=== PATIENT | female | born 1955 | race Caucasian/White ===

== ENCOUNTER 2017-02-25 11:19 | Emergency (ER) | payer MEDICARE, OTHER ==
[2017-02-25] MEDS ORDERED: Adacel (T-DAP) 0.5 ML VIAL ONE (11:45)
== END 2017-02-25 12:09 | disposition home or self-care (01) ==
LOC: NAV ERS 11:19
DX: S91.331A Puncture wound without foreign body, right foot, initial encounter (principal); I10 Essential (primary) hypertension; E03.9 Hypothyroidism, unspecified; J45.909 Unspecified asthma, uncomplicated; F31.9 Bipolar disorder, unspecified; F17.210 Nicotine dependence, cigarettes, uncomplicated; Z79.899 Other long term (current) drug therapy; W45.0XXA Nail entering through skin, initial encounter; Z23 Encounter for immunization
CPT/HCPCS: 90471; 90715

== ENCOUNTER 2020-12-08 17:19 | Emergency (ER) | payer MEDICARE, OTHER | END 2020-12-08 19:00 | disposition home or self-care (01) | LOC: NAV ERS 17:19 | DX: L02.416 Cutaneous abscess of left lower limb (principal); E78.5 Hyperlipidemia, unspecified; E03.9 Hypothyroidism, unspecified; I10 Essential (primary) hypertension; F17.220 Nicotine dependence, chewing tobacco, uncomplicated; Z79.899 Other long term (current) drug therapy | CPT/HCPCS: 10060; 87070; 87205 ==

== ENCOUNTER 2022-05-08 14:01 | Emergency (ER) | payer MEDICAID, MEDICARE, OTHER ==
[2022-05-08 14:28] LABS: Bilirubin Negative (Negative); Blood, Urine Trace (Negative); Glucose, Urine (Dipstick) Negative (Negative); Ketone, Urine Negative (Negative); Leukocyte Trace (Negative); Nitrite Negative (Negative); Protein, Urine (Dipstick) 30 mg/dL (Neg-Trace); Specific Gravity, Urine 1.015 (1.005-1.030); Urobilinogen 0.2 mg/dL (Less than 2)
[2022-05-08 14:44] LABS: Clarity SL HAZY (Clear); RBC/HPF 0-3 HPF (0-3); Squamous Epithelial 0-3 HPF (0-3); WBC/HPF 0-3 HPF (0-3)
[2022-05-08] MEDS ORDERED: Sodium Chloride 0.9% 1,000 ML ONE (14:59)
== END 2022-05-08 15:15 | disposition home or self-care (01) ==
LOC: NAV ERS 14:01
DX: R30.0 Dysuria (principal); R19.7 Diarrhea, unspecified; Z20.822 Contact with and (suspected) exposure to COVID-19; E78.5 Hyperlipidemia, unspecified; E03.9 Hypothyroidism, unspecified; I10 Essential (primary) hypertension; F17.210 Nicotine dependence, cigarettes, uncomplicated; Z79.899 Other long term (current) drug therapy
CPT/HCPCS: 81003; 81015; 87086; 99283; J7050; U0003; U0005

== ENCOUNTER 2023-04-02 04:08 | Emergency (ER) | payer OTHER, MEDICARE ==
[2023-04-02] MEDS ORDERED: Acetaminophen 500 MG TAB ONE (04:58)
== END 2023-04-02 04:16 | disposition home or self-care (01) ==
LOC: NAV ERS 04:08
DX: M54.2 Cervicalgia (principal); I10 Essential (primary) hypertension; E03.9 Hypothyroidism, unspecified; F17.220 Nicotine dependence, chewing tobacco, uncomplicated; J45.909 Unspecified asthma, uncomplicated; E78.00 Pure hypercholesterolemia, unspecified; V48.9XXA Unspecified car occupant injured in noncollision transport accident in traffic accident, initial encounter; Z79.899 Other long term (current) drug therapy
CPT/HCPCS: 99283

== ENCOUNTER 2023-09-19 19:46 | Emergency (ER) | payer MEDICARE, MEDICAID | END 2023-09-19 21:18 | disposition home or self-care (01) | LOC: NAV ERS 19:46 | DX: S93.402A Sprain of unspecified ligament of left ankle, initial encounter (principal); S86.912A Strain of unspecified muscle(s) and tendon(s) at lower leg level, left leg, initial encounter; I10 Essential (primary) hypertension; F17.220 Nicotine dependence, chewing tobacco, uncomplicated; F17.210 Nicotine dependence, cigarettes, uncomplicated; W19.XXXA Unspecified fall, initial encounter ==

== ENCOUNTER 2025-05-13 07:38 | Emergency (ER) | payer OTHER | END 2025-05-13 08:39 | disposition home or self-care (01) | LOC: NAV ERS 07:38 | DX: M54.2 Cervicalgia (principal); G89.29 Other chronic pain; I10 Essential (primary) hypertension; E03.9 Hypothyroidism, unspecified; J45.909 Unspecified asthma, uncomplicated; F17.210 Nicotine dependence, cigarettes, uncomplicated; Z79.51 Long term (current) use of inhaled steroids; Z79.890 Hormone replacement therapy; Z79.899 Other long term (current) drug therapy | CPT/HCPCS: 99283 ==